=== PATIENT | female | born 1990 | race Caucasian/White ===

== ENCOUNTER 2020-07-17 11:37 | Outpatient (REF) | payer OTHER, SELFPAY ==
[2020-07-17 12:11] LABS: COVID-19 Test Negative (Negative)
== END 2020-07-17 11:38 | disposition home or self-care (01) ==
LOC: HO.LAB 11:37
PROVIDERS: Visit Provider Internal Medicine
DX: Z20.828 Contact with and (suspected) exposure to other viral communicable diseases (principal)
CPT/HCPCS: 87635

== ENCOUNTER 2020-07-21 17:06 | Outpatient (REF) | payer OTHER, SELFPAY ==
[2020-07-21 17:34] LABS: COVID-19 Test Negative (Negative)
== END 2020-07-21 17:07 | disposition home or self-care (01) ==
LOC: HO.LAB 17:06
PROVIDERS: PCP Family Medicine; Visit Provider Internal Medicine
DX: Z20.828 Contact with and (suspected) exposure to other viral communicable diseases (principal)
CPT/HCPCS: 87635

== ENCOUNTER 2020-08-11 17:54 | Outpatient (REF) | payer OTHER, SELFPAY ==
[2020-08-11 18:14] LABS: COVID-19 Test Negative (Negative); IDNOW Serial# 55D5AD1C
== END 2020-08-11 17:55 | disposition home or self-care (01) ==
LOC: HO.LAB 17:54
PROVIDERS: Visit Provider Internal Medicine
DX: Z20.828 Contact with and (suspected) exposure to other viral communicable diseases (principal)
CPT/HCPCS: 87635; C9803

== ENCOUNTER 2020-09-30 12:41 | Emergency (ER) | payer OTHER, SELFPAY ==
[2020-09-30 12:45] VITALS: BP 133/65; PULSE 97; RESP 16; O2SAT 98; BMI 23.3
--- NOTE | 2020-09-30 12:46 | MR_ITS ---
EXAMINATION: MR BRAIN WITHOUT CONTRAST CLINICAL INFORMATION: Severe headache. Nine weeks . History of von Willebrand disease. COMPARISON: None available. TECHNIQUE: MRI of the brain was obtained using routine sequences without contrast. FINDINGS: No focal restricted diffusion is demonstrated to suggest acute or subacute cerebral ischemia. No evidence of acute or chronic hemorrhagic products on heme-sensitive imaging. Nonspecific T2 FLAIR hyperintensity within the deep white matter of the anterior left frontal lobe. No additional parenchymal signal abnormalities. The ventricles are normal in morphology and size. No abnormal mass effect. No midline shift. Normal appearance of the pituitary gland. No abnormalities of the posterior fossa with normal appearance of the brainstem and cerebellum. Normal positioning of the cerebellar tonsils. Normal arterial and venous vascular flow voids are present. Normal, homogeneous marrow signal. Mild mucosal thickening of the paranasal sinuses. No signal abnormalities within the mastoids. MR/MR head/brain wo con IMPRESSION: 1. No evidence of acute intracranial abnormalities. 2. Nonspecific minimal white matter change.
--- NOTE | 2020-09-30 12:48 | US_ITS ---
EXAMINATION: ULTRASOUND OB LESS THAN 14 WEEKS CLINICAL INFORMATION: Positive . Pain and vomiting with COMPARISON: None TECHNIQUE: Transabdominal imaging of pelvis is performed. FINDINGS: The uterus is anteverted with an intrauterine gestational sac and a pole visualized. The crown-rump length measures 2.4 cm corresponding to 9 weeks 2 days and JAMES of 05/03/2021. There is visualization of gestational sac, yolk sac and a pole with motion. The heart rate is 169 bpm. Incidental note is a small cyst subchorionic hypoechoic area consistent with bleed. The right ovary measures 3.7 x 2.5 x 2.0 cm. There is a small corpus luteal cyst measuring 2.0 x 1.6 x 2.0 cm. The left ovary measures 1.8 x 1.0 x 2.1 cm. US/US OB <= 14 weeks fetus IMPRESSION: Single live intrauterine fetus with ultrasound gestational age of 9 weeks 2 days and JAMES of 05/03/2021. There is small subchorionic bleed noted.
--- NOTE | 2020-09-30 12:49 | ED.HA ---
HPI - Headache General Chief Complaint: Headache Stated Complaint: headache Time Seen by Provider: 09/30/20 12:46 Source: patient Mode of arrival: ambulatory Limitations: no limitations History of Present Illness HPI Narrative: 29 yo female 9 weeks here with headache cramping no bleeding with n/v she suffers from migraines and hyperemesis but given her history of von willebrands she is concerned due to her degree of pain MD elicited complaint: migraine Pertinent past history: migraines and coagulopathy Onset (ago): day(s) (yesterday) Onset description: gradually Location: diffuse Severity: severe Quality & Timing: throbbing Exacerbating factors: light and noise Relieving factors: nothing Context: occurred at rest Associated symptoms: nausea, vomiting and other (cramping) Treatments prior to arrival: none (unable to keep PO down) Related Data Allergies Allergy/AdvReac Type Severity Reaction Status Date / Time acetaminophen [From PERCOCET] Allergy Unknown NAUSEA & Unverified 06/12/20 16:13 VOMITING amoxicillin [Prevpac] Allergy Unknown Verified 04/21/20 00:00 clarithromycin [Prevpac] Allergy Unknown Verified 04/21/20 00:00 codeine [CODEINE] Allergy Unknown NAUSEA & Unverified 06/12/20 16:13 VOMITING lansoprazole [Prevpac] Allergy Unknown Verified 04/21/20 00:00 omeprazole [From PRILOSEC] Allergy Unknown HIVES Unverified 06/12/20 16:13 oxycodone [From PERCOCET] Allergy Unknown NAUSEA & Unverified 06/12/20 16:13 VOMITING Codeine Allergy Unknown Uncoded 04/21/20 00:00 Review of Systems Review of Systems: Constitutional : No Fever, No Chills, No Fatigue ENT/Mouth : No sore throat, No Rhinorrhea Eyes: No Eye Pain, No Swelling, No Redness Cardiovascular : No Chest Pain, No SOB, No Dyspnea on Exertion Respiratory : No Cough, No Sputum Gastrointestinal : pos Nausea, pos Vomiting, No Diarrhea, mild lower crampy abdominal Pain Genitourinary : No Dysuria, No Urinary Frequency, No Hematuria, no bleeding Musculoskeletal : No joint pain, No Myalgias, No Joint Swelling Skin : No Skin Lesions, No rash Neuro : No Weakness, No Numbness, No Dizziness, positive Headache Psych : No Anxiety/Panic, No Depression Heme/Lymph: No Bruising, No Bleeding,No Lymphadenopathy Endocrine : No Polyuria, No Polydipsia All other systems reviewed and are negative [facility] Past Medical History Attestation statement: The following information was validated with the patient. Medical History Syncope Von Willebrand disease Social History Social History Alcohol intake: never Smoked in Last 30 Days: No Use of substances other than those prescribed or required for medical reasons: No Advance Directives: No Advance Directives Information Provided: No Physical Exam Vital Signs: Vital Signs: Last Vital Signs Temp 99.4 F 09/30/20 15:11 Pulse 88 09/30/20 15:11 Resp 12 09/30/20 15:11 BP 105/50 L 09/30/20 15:11 Pulse Ox 98 09/30/20 15:11 Body Mass Index 23.3 Appearance: Alert. Oriented X3. mild acute distress. Anxious in pain tearful Eyes: Pupils equal, round and reactive to light. ENT: Pharynx normal. Neck: Normal inspection. Neck supple. no meningeal signs CVS: Normal heart rate and rhythm. Pulses normal. Respiratory: No respiratory distress. Breath sounds normal. Abdomen: Soft and nontender. Skin: Skin warm and dry. Normal skin color. Normal skin turgor. Extremities: No lower extremity edema. No calf ttp Neuro: Oriented X 3. No motor deficit. No sensory deficit. Course Course Course Narrative: patient feels better at this time, pending MRI, signed out to Dr. Mccracken [facility] - Headache [facility] Narrative Medical decision making narrative: 29 yo female with von willebrands disease, migraines, she is 9 weeks comes in with migraine and lower abdominal cramping given her history of coagulopathy she will need labs, US to evaluate given her IVF and cramping pain, also IVF supportive medications for migraine, MRI to r/o bleed though lower suspcion she is high risk because of von willebrands Lab Data Result diagrams: 09/30/20 13:01 09/30/20 13:01 Labs: Lab Results 09/30/20 09/30/20 09/30/20 Range/Units 13:01 13:01 13:01 WBC 11.3 H (4.8-10.8) X10*3/uL RBC 4.44 (4.20-5.50) X10*6/uL Hgb 13.8 (12.0-16.0) g/dl Hct 40.0 (37-47) % MCV 90.1 (80-98) fL MCH 31.1 (27.0-33.0) pg MCHC 34.5 (31.0-35.0) g/dl RDW 12.2 (11.0-16.0) % Plt Count 226 (160-400) X10*3/uL MPV 10.4 (9.4-12.3) fL Immature Gran % (Auto) 0.5 H (0.0-0.4) % Neut % (Auto) 87.9 H (45-73) % Lymph % (Auto) 9.0 L (20-40) % [place] % (Auto) 2.5 (2-11) % Eos % (Auto) 0.0 (0-4) % Baso % (Auto) 0.1 (0-2) % Lymph # (Auto) 1.0 L (1.2-4.9) X10*3/uL [place] # (Auto) 0.3 (0.1-1.2) X10*3/uL Eos # (Auto) 0.0 (0.0-0.4) X10*3/uL Baso # (Auto) 0.0 (0.0-0.2) X10*3/uL Abs Immat Gran (auto) 0.06 H (0.00-0.03) X10*3/uL Absolute Neuts (auto) 9.9 H (2.0-8.3) X10*3/uL Absolute Nucleated RBC 0.000 (0.0-0.012) X10*3/uL Nucleated RBC % (auto) 0.0 (0.0-0.2) /100WBC PT 12.4 (10.8-13.0) SEC INR 1.0 (0.9-1.1) APTT 31.4 (24.1-38.0) SEC Sodium 136 (135-145) mmol/L Potassium 3.8 (3.3-5.1) mmol/l Chloride 102 (96-108) mmol/L Carbon Dioxide 21 L (22-29) mmol/L Anion Gap 17 (12-20) BUN 6 L (9-16) mg/dL Creatinine 0.59 (0.5-1.4) mg/dL Estim Creat Clear Calc 110.2 Estimated GFR > 60 Random Glucose 107 (60-115) mg/dL Calcium 8.9 (8.4-10.2) mg/dL Discharge Plan Discharge Clinical Impression: Migraine, Subchorionic hematoma, Vomiting
[2020-09-30] MEDS: 0.9 % Sodium Chloride 1,000 ML 999 ML IVCONT ×2 (13:00→15:42)
[2020-09-30] MEDS: diphenhydrAMINE HCL 50 MG/ML VIAL 25 MG IVPUSH ×2 (13:00→14:28)
[2020-09-30] MEDS: Metoclopramide HCl 10 MG/2 ML VIAL IVPUSH (13:00)
[2020-09-30 13:16] LABS: Basophils Percent Auto 0.1 % (0-2); Hemoglobin 13.8 g/dl (12.0-16.0); Imm Gran Abs Auto 0.06 X10*3/uL (0.00-0.03); Imm Gran Pct Auto 0.5 % (0.0-0.4); MANUAL DIFF FLAG NO; Mean Corpuscular HGB Conc 34.5 g/dl (31.0-35.0); Mean Corpuscular Hemoglobin 31.1 pg (27.0-33.0); Mean Corpuscular Volume 90.1 fL (80-98); Mean Platelet Volume 10.4 fL (9.4-12.3); Monocytes Absolute Auto 0.3 X10*3/uL (0.1-1.2); Monocytes Percent Auto 2.5 % (2-11); Neutrophils Absolute Auto 9.9 X10*3/uL (2.0-8.3); Neutrophils Percent Auto 87.9 % (45-73); Platelet Count 226 X10*3/uL (160-400); Red Blood Count 4.44 X10*6/uL (4.20-5.50); Red Cell Distribution Width 12.2 % (11.0-16.0); White Blood Count 11.3 X10*3/uL (4.8-10.8)
[2020-09-30 13:21] LABS: Prothrombin Time 12.4 SEC (10.8-13.0)
[2020-09-30 13:24] LABS: Partial Thromboplastin Time 31.4 SEC (24.1-38.0)
[2020-09-30 13:42] LABS: Anion Gap 17 (12-20); Blood Urea Nitrogen 6 mg/dL (9-16); Calcium 8.9 mg/dL (8.4-10.2); Carbon Dioxide 21 mmol/L (22-29); Chloride 102 mmol/L (96-108); Creatinine Clr Calc Pharmacy 110.2; Estimated Glomerular Filt Rate > 60; Glucose Random 107 mg/dL (60-115); Potassium 3.8 mmol/l (3.3-5.1); Sodium 136 mmol/L (135-145)
[2020-09-30] MEDS: Acetaminophen Supp 650 MG SUPP.RECT PR (14:28)
[2020-09-30 15:11] VITALS: BP 105/50; PULSE 88; RESP 12; TEMP 37.4; O2SAT 98
[2020-09-30 17:12] LABS: Glucose Urine UA NEG (NEG); Leukocyte Esterase Urine NEG (NEG); Nitrite Urine NEG (NEG); Specific Gravity - Urine >= 1.030 (1.005-1.025); Urine Blood NEG (NEG); Urine Ketones >=80 MG/DL (NEG); Urine Protein NEG (NEG-TRACE)
[2020-09-30 17:17] LABS: Influenza A PCR NEGATIVE (Negative); Influenza B PCR NEGATIVE (Negative); Resp Syncy Virus RNA Qual PCR NEGATIVE (Negative); SARS COV2 PCR INHOUSE NEGATIVE (Negative)
[2020-09-30 17:32] LABS: Appearance Urine CLEAR; Color Urine YELLOW
[2020-09-30 18:39] VITALS: BP 99/50; PULSE 77; RESP 16; O2SAT 100
== END 2020-09-30 19:59 | disposition home or self-care (01) ==
PROVIDERS: Emergency Medicine; Emergency Provider Emergency Medicine
DX: O46.8X1 Other antepartum hemorrhage, first trimester (principal); O26.891 Other specified pregnancy related conditions, first trimester; G43.909 Migraine, unspecified, not intractable, without status migrainosus; R11.10 Vomiting, unspecified; O99.111 Other diseases of the blood and blood-forming organs and certain disorders involving the immune mechanism complicating pregnancy, first trimester; Z3A.09 9 weeks gestation of pregnancy
CPT/HCPCS: 0241U; 36415; 70551; 76801; 80048; 81003; 85025; 85610; 85730; 96361; 96374; 96375; 96376; 99284; 99285; J1200; J2765